=== PATIENT | female | born 2000 | race Caucasian/White ===

== ENCOUNTER 2021-10-30 17:37 | Inpatient (IN) | payer OTHER, SELFPAY ==
[2021-10-30 18:13] LABS: #Basophils 0.1 10x3/uL (0.0-0.2); #Monocytes 0.6 10x3/uL (0.0-1.1); %Basophils 0.5 % (0.0-2.0); %Lymphocytes 9.6 % (18.0-47.0); %Monocytes 5.8 % (0.0-10.0); %Neutrophils 83.9 % (40.0-75.0); Hemoglobin 15.1 g/dL (12.0-15.5); Mean Corpuscular HGB CONC 35.8 g/dL (32.0-36.0); Mean Corpuscular Volume 81.2 fl (81.6-98.3); Mean Platelet Volume 9.2 fl (7.4-10.4); Platelet Count 297 10x3/uL (150-450); White Blood Cell (WBC) Count 9.5 10x3/uL (3.5-10.5)
[2021-10-30 18:21] LABS: BHCG - Serum Negative (NEGATIVE); Pregs Control Background? CLEAR/WHITE (CLR/WHITE); Pregs Control Bar Appear? YES (CONTROL BAR)
[2021-10-30 18:30] LABS: ALT (SGPT) 11 U/L (8-55); AST (SGOT) 12 U/L (5-34); Albumin 4.4 g/dL (3.5-5.0); Alkaline Phosphatase 82 U/L (40-100); Anion Gap 21 mmol/L (10-20); BUN (Urea Nitrogen) 10 mg/dL (7.0-18.7); Bilirubin, Total 0.5 mg/dL (0.2-1.2); Calc. Creatinine Clearance 0 mL/min (70-130); Calcium 9.4 mg/dL (7.8-10.44); Carbon Dioxide 11 mmol/L (22-29); Chloride 107 mmol/L (98-107); Globulin 2.9 g/dL (2.4-3.5); Glucose 224 mg/dL (70-105); Potassium 3.8 mmol/L (3.5-5.1); Protein, Total 7.3 g/dL (6.0-8.3); Sodium 135 mmol/L (136-145)
[2021-10-30 18:45] LABS: Lipase Less than 4 U/L (8-78)
[2021-10-30 18:45] LABS: Actual Bicarbonate (HCO3v) 12 mEq/L (22-28); Base Excess -12.5 mEq/L (-2.0 to +3.0); Calcium, Ionized (venous) 1.24 mmol/L (1.16-1.32); Chloride (VBG) 102 mmol/L (98-106); Hemoglobin (Hb) 16.7 g/dL (11.7-15.5); Potassium (VBG) 3.74 mmol/L (3.70-5.30); Puncture Site Other Site; Sodium 134.5 mmol/L (133-146); pH (venous) 7.28 (7.32-7.43)
[2021-10-30] MEDS ORDERED: Acetaminophen 500 MG TAB ONE (18:46)
[2021-10-30] MEDS ORDERED: Zolpidem Tartrate 5 MG TAB PO PRN (19:54)
[2021-10-30] MEDS ORDERED: Guaifenesin DM 100-10/5 ML UDCUP PO PRN (19:54)
[2021-10-30] MEDS ORDERED: Electrolyte Replacement Protocol 1 EACH IVPB PRN (19:54)
[2021-10-30] MEDS ORDERED: Ondansetron PF 4 MG/2 ML Vial IVP PRN (19:54)
[2021-10-30] MEDS ORDERED: INSULIN REGULAR IN 0.9 % NACL 100 UNIT/100 ML BAG ONE (19:54)
[2021-10-30] MEDS ORDERED: Calcium Carbonate 500 MG ChewTAB PO PRN (19:54)
[2021-10-30] MEDS ORDERED: Senokot S 8.6-50 MG TAB PO PRN (19:54)
[2021-10-30] MEDS ORDERED: Acetaminophen 325 MG TAB PO PRN (19:54)
[2021-10-30 20:51] VITALS: BMI 22.8
[2021-10-30] MEDS: INSULIN REGULAR IN 0.9 % NACL 100 UNIT in Premix Bag 1 BAG IVPB SCH (21:00)
[2021-10-30] MEDS ORDERED: Potassium Chloride 20 MEQ TAB PO SCH (21:00)
[2021-10-30] MEDS ORDERED: predniSONE 20 MG TAB PO SCH (21:00)
[2021-10-30 21:05] LABS: Bilirubin Neg (Negative); Blood, Urine 25 (Negative); Clarity Clear (Clear); Glucose, Urine (Dipstick) >=1000 mg/dL (Negative); Ketone, Urine 150 mg/dL (Negative); Leukocyte 100 (Negative); Nitrite Positive (Negative); Protein, Urine (Dipstick) 15 mg/dl (Neg-Trace); Specific Gravity, Urine 1.015 (1.002-1.036); Urobilinogen Normal mg/dL (Less than 2)
[2021-10-30] MEDS: Lactated Ringer's 1,000 ML IV SCH (21:06)
[2021-10-30] MEDS: D5 1/2 NS w/40 mEq KCL 1,000 ML IV SCH (21:06)
[2021-10-30 21:14] LABS: RBC/HPF 0-3 HPF (0-3)
[2021-10-30 21:15] LABS: Bacteria/HPF 1+ HPF (None Seen); Yeast-Budding 1+ HPF (None Seen)
[2021-10-30 22:18] LABS: Anion Gap 20 mmol/L (10-20); BUN (Urea Nitrogen) 7 mg/dL (7.0-18.7); Calc. Creatinine Clearance 98 mL/min (70-130); Calcium 8.2 mg/dL (7.8-10.44); Carbon Dioxide 10 mmol/L (22-29); Chloride 109 mmol/L (98-107); Glucose 225 mg/dL (70-105); Magnesium 1.6 mg/dL (1.7-2.2); Phosphorus 2.4 mg/dL (2.3-4.7); Potassium 3.7 mmol/L (3.5-5.1); Sodium 135 mmol/L (136-145)
[2021-10-30 22:18] LABS: Actual Bicarbonate (HCO3v) 10 mEq/L (22-28); Base Excess -16.1 mEq/L (-2.0 to +3.0); Calcium, Ionized (venous) 1.16 mmol/L (1.16-1.32); Chloride (VBG) 108 mmol/L (98-106); Hemoglobin (Hb) 13.4 g/dL (11.7-15.5); Puncture Site Other Site; Sodium 134.6 mmol/L (133-146)
[2021-10-30] MEDS ORDERED: Fluconazole In NaCl,Iso-Osm 200 MG in Premix Bag 1 BAG IVPB SCH (22:30)
[2021-10-30] MEDS ORDERED: Magnesium 2 GM/50 ML(in water) 2 GM in Premix Bag 1 BAG IVPB SCH (22:30)
[2021-10-30 23:06] LABS: SARS-CoV-2 NAA Rapid Test Not Detected (NotDetected)
[2021-10-30] MEDS: cefTRIAXone\\ROCEPHIN 1 GM in Sodium Chloride 0.9% 100 ML IVPB SCH (23:14)
[2021-10-30] MEDS: Oxymetazoline HCl 0.05% ( 15 ML ) NASAL SCH (23:26)
[2021-10-31] MEDS ORDERED: Magnesium 2 GM/50 ML(in water) 2 GM in Premix Bag 1 BAG IVPB SCH ×2 (00:30→07:00)
[2021-10-31 02:27] LABS: Actual Bicarbonate (HCO3v) 15 mEq/L (22-28); Base Excess -10.6 mEq/L (-2.0 to +3.0); Chloride (VBG) 108 mmol/L (98-106); Hemoglobin (Hb) 13.3 g/dL (11.7-15.5); Potassium (VBG) 4.17 mmol/L (3.70-5.30); Puncture Site Other Site; RapidComm Collect By LAB.YY; Sodium 134.6 mmol/L (133-146); pH (venous) 7.27 (7.32-7.43)
[2021-10-31 02:32] LABS: Anion Gap 15 mmol/L (10-20); BUN (Urea Nitrogen) 5 mg/dL (7.0-18.7); Calc. Creatinine Clearance 110 mL/min (70-130); Calcium 8.4 mg/dL (7.8-10.44); Carbon Dioxide 14 mmol/L (22-29); Chloride 111 mmol/L (98-107); Glucose 144 mg/dL (70-105); Magnesium 2.1 mg/dL (1.7-2.2); Phosphorus 1.3 mg/dL (2.3-4.7); Potassium 4.2 mmol/L (3.5-5.1); Sodium 136 mmol/L (136-145)
[2021-10-31] MEDS ORDERED: Potassium Phosphate 30 MMOL, Admixture Fee 1 EACH in Sodium Chloride 0.9% 250 ML 250 ML IVPB SCH (04:00)
[2021-10-31] MEDS: Lactated Ringer's 1,000 ML IV SCH ×2 (04:54→08:19)
[2021-10-31] MEDS: D5 1/2 NS w/40 mEq KCL 1,000 ML IV SCH ×3 (04:54→17:14)
[2021-10-31 06:20] LABS: Actual Bicarbonate (HCO3v) 16 mEq/L (22-28); Calcium, Ionized (venous) 1.21 mmol/L (1.16-1.32); Chloride (VBG) 107 mmol/L (98-106); Hemoglobin (Hb) 14.3 g/dL (11.7-15.5); Potassium (VBG) 4.24 mmol/L (3.70-5.30); Puncture Site Other Site; RapidComm Collect By LAB; Sodium 133.8 mmol/L (133-146); pH (venous) 7.32 (7.32-7.43)
[2021-10-31 06:28] LABS: #Monocytes 0.1 10x3/uL (0.0-1.1); #Neutrophils 5.6 10x3/uL (1.5-8.4); %Basophils 0.3 % (0.0-2.0); %Lymphocytes 10.7 % (18.0-47.0); %Monocytes 1.6 % (0.0-10.0); %Neutrophils 87.1 % (40.0-75.0); Mean Corpuscular HGB CONC 34.5 g/dL (32.0-36.0); Mean Corpuscular Hemoglobin 28.6 pg (27.0-33.0); Mean Platelet Volume 9.4 fl (7.4-10.4); Platelet Count 284 10x3/uL (150-450); RBC Distribution Width 12.2 % (11.5-14.5); Red Blood Cell (RBC) Count 4.54 10x6/uL (3.90-5.03); White Blood Cell (WBC) Count 6.4 10x3/uL (3.5-10.5)
[2021-10-31 06:37] LABS: Anion Gap 16 mmol/L (10-20); BUN (Urea Nitrogen) 4 mg/dL (7.0-18.7); Calc. Creatinine Clearance 112 mL/min (70-130); Calcium 8.8 mg/dL (7.8-10.44); Carbon Dioxide 14 mmol/L (22-29); Chloride 110 mmol/L (98-107); Glucose 164 mg/dL (70-105); Magnesium 1.7 mg/dL (1.7-2.2); Phosphorus 1.9 mg/dL (2.3-4.7); Potassium 4.4 mmol/L (3.5-5.1); Sodium 136 mmol/L (136-145)
[2021-10-31] MEDS ORDERED: PHOS-NAK 1 PKT PACK PO SCH (08:00)
[2021-10-31] MEDS: PHOS-NAK 1 PKT PACK PO SCH ×2 (08:22→16:42)
[2021-10-31] MEDS: Oxymetazoline HCl 0.05% ( 15 ML ) NASAL SCH ×2 (08:22→20:58)
[2021-10-31] MEDS: Enoxaparin Sodium 40 MG/0.4 ML SYRINGE SC SCH (08:22)
[2021-10-31 11:04] LABS: Anion Gap 15 mmol/L (10-20); BUN (Urea Nitrogen) Less than 4 mg/dL (7.0-18.7); Calc. Creatinine Clearance 110 mL/min (70-130); Calcium 8.8 mg/dL (7.8-10.44); Carbon Dioxide 17 mmol/L (22-29); Chloride 106 mmol/L (98-107); Glucose 258 mg/dL (70-105); Magnesium 2.5 mg/dL (1.7-2.2); Potassium 4.2 mmol/L (3.5-5.1); Sodium 134 mmol/L (136-145)
[2021-10-31 12:07] LABS: Hemoglobin A1c 11.2 % (4.0-6.0)
[2021-10-31] MEDS: INSULIN REGULAR IN 0.9 % NACL 100 UNIT in Premix Bag 1 BAG IVPB SCH (13:39)
[2021-10-31 17:37] LABS: Anion Gap 14 mmol/L (10-20); BUN (Urea Nitrogen) 6 mg/dL (7.0-18.7); Calc. Creatinine Clearance 118 mL/min (70-130); Calcium 8.6 mg/dL (7.8-10.44); Carbon Dioxide 19 mmol/L (22-29); Chloride 107 mmol/L (98-107); Glucose 201 mg/dL (70-105); Potassium 4.1 mmol/L (3.5-5.1); Sodium 136 mmol/L (136-145)
[2021-10-31 20:30] LABS: Anion Gap 14 mmol/L (10-20); BUN (Urea Nitrogen) 5 mg/dL (7.0-18.7); Calc. Creatinine Clearance 110 mL/min (70-130); Calcium 8.9 mg/dL (7.8-10.44); Carbon Dioxide 21 mmol/L (22-29); Chloride 103 mmol/L (98-107); Glucose 275 mg/dL (70-105); Potassium 3.7 mmol/L (3.5-5.1); Sodium 134 mmol/L (136-145)
[2021-10-31] MEDS ORDERED: Dextrose 50% Abboject 50 ML SYRINGE SLOW IVP PRN (21:49)
[2021-10-31] MEDS ORDERED: Dextrose 5% in Water 1,000 ML IV PRN (21:49)
[2021-10-31] MEDS ORDERED: Potassium Chloride 20 MEQ TAB PO SCH (22:00)
[2021-10-31] MEDS: cefTRIAXone\\ROCEPHIN 1 GM in Sodium Chloride 0.9% 100 ML IVPB SCH (22:02)
[2021-10-31] MEDS: Lantus 1000 UNITS/10 ML VIAL SC SCH (22:02)
[2021-10-31] MEDS: Fluconazole 100 MG TAB PO SCH (22:03)
[2021-11-01 04:05] LABS: #Basophils 0.1 10x3/uL (0.0-0.2); #Eosinphils 0.1 10x3/uL (0.0-0.5); #Monocytes 0.6 10x3/uL (0.0-1.1); #Neutrophils 2.8 10x3/uL (1.5-8.4); %Basophils 0.8 % (0.0-2.0); %Eosinophils 0.8 % (0.0-6.0); %Lymphocytes 44.1 % (18.0-47.0); %Monocytes 9.8 % (0.0-10.0); %Neutrophils 44.3 % (40.0-75.0); Mean Corpuscular HGB CONC 35.4 g/dL (32.0-36.0); Mean Corpuscular Hemoglobin 28.8 pg (27.0-33.0); Mean Corpuscular Volume 81.2 fl (81.6-98.3); Mean Platelet Volume 9.2 fl (7.4-10.4); Platelet Count 275 10x3/uL (150-450); RBC Distribution Width 12.4 % (11.5-14.5); Red Blood Cell (RBC) Count 4.52 10x6/uL (3.90-5.03); White Blood Cell (WBC) Count 6.3 10x3/uL (3.5-10.5)
[2021-11-01 04:22] LABS: Anion Gap 15 mmol/L (10-20); BUN (Urea Nitrogen) 4 mg/dL (7.0-18.7); Calc. Creatinine Clearance 126 mL/min (70-130); Calcium 8.9 mg/dL (7.8-10.44); Carbon Dioxide 21 mmol/L (22-29); Chloride 106 mmol/L (98-107); Glucose 188 mg/dL (70-105); Magnesium 1.6 mg/dL (1.7-2.2); Phosphorus 3.3 mg/dL (2.3-4.7); Potassium 3.9 mmol/L (3.5-5.1); Sodium 138 mmol/L (136-145)
[2021-11-01] MEDS: HumaLOG 300 UNITS/3 ML VIAL SC PRN ×3 (05:19→16:26)
[2021-11-01] MEDS ORDERED: Potassium Chloride 20 MEQ TAB PO SCH (06:00)
[2021-11-01] MEDS ORDERED: Magnesium 2 GM/50 ML(in water) 2 GM in Premix Bag 1 BAG IVPB SCH (06:00)
[2021-11-01] MEDS: Oxymetazoline HCl 0.05% ( 15 ML ) NASAL SCH (08:25)
[2021-11-01] MEDS: PHOS-NAK 1 PKT PACK PO SCH ×2 (08:25→16:14)
[2021-11-01] MEDS: Enoxaparin Sodium 40 MG/0.4 ML SYRINGE SC SCH (08:25)
[2021-11-01] MEDS: Lantus 1000 UNITS/10 ML VIAL SC SCH (21:11)
[2021-11-01] MEDS: Fluconazole 100 MG TAB PO SCH (23:18)
[2021-11-02 04:33] LABS: Mean Corpuscular HGB CONC 34.8 g/dL (32.0-36.0); Mean Corpuscular Hemoglobin 28.5 pg (27.0-33.0); Mean Corpuscular Volume 81.7 fl (81.6-98.3); Mean Platelet Volume 9.1 fl (7.4-10.4); Platelet Count 275 10x3/uL (150-450); RBC Distribution Width 12.2 % (11.5-14.5); Red Blood Cell (RBC) Count 4.92 10x6/uL (3.90-5.03)
[2021-11-02 04:48] LABS: MDiff Complete? YES
[2021-11-02 04:53] LABS: Band 3 % (5-11); Eosinophils 1 % (0-10); Lymphocytes 55 % (28-48); Monocytes 7 % (0-4); Neutrophil 30 % (31-61); Platelet Morphology Comment Appears Adequate; RBC Morphology Normal; Reactive Lymphocytes 4 % (0-10)
[2021-11-02 04:56] LABS: Anion Gap 14 mmol/L (10-20); BUN (Urea Nitrogen) 10 mg/dL (7.0-18.7); Calc. Creatinine Clearance 124 mL/min (70-130); Calcium 9.5 mg/dL (7.8-10.44); Carbon Dioxide 25 mmol/L (22-29); Chloride 102 mmol/L (98-107); Glucose 249 mg/dL (70-105); Magnesium 1.9 mg/dL (1.7-2.2); Sodium 137 mmol/L (136-145)
[2021-11-02] MEDS ORDERED: Magnesium 2 GM/50 ML(in water) 2 GM in Premix Bag 1 BAG IVPB SCH (06:00)
[2021-11-02] MEDS: HumaLOG 300 UNITS/3 ML VIAL SC PRN ×2 (06:35→12:05)
[2021-11-02] MEDS ORDERED: Lantus 1000 UNITS/10 ML VIAL SC SCH (07:30)
[2021-11-02] MEDS: Enoxaparin Sodium 40 MG/0.4 ML SYRINGE SC SCH (08:41)
[2021-11-02] MEDS: PHOS-NAK 1 PKT PACK PO SCH (08:41)
[2021-11-02] MEDS ORDERED: Fluticasone Propionate Nasal Spray 16 gm Bottle NASAL SCH (09:00)
[2021-11-02 12:16] VITALS: BP 114/65; TEMP 97.6
== END 2021-11-02 13:01 | disposition home or self-care (01) | DRG 638 ==
LOC: CSHERS 17:37 → CSHIMCU 20:46 → CSHTELE 11-01 18:24
PROVIDERS: ADMIT Student in an Organized Health Care Education/Training Program; ATTEND Emergency Medicine
DX: E10.10 Type 1 diabetes mellitus with ketoacidosis without coma (principal); N39.0 Urinary tract infection, site not specified; N17.9 Acute kidney failure, unspecified; E86.0 Dehydration; Z20.822 Contact with and (suspected) exposure to COVID-19; J06.9 Acute upper respiratory infection, unspecified
CPT/HCPCS: 36415; 36416; 71045; 80048; 80053; 81001; 82010; 82805; 83036; 83605; 83690; 83735; 84100; 84703; 85025; 87040; 87086; 87804; 93005; J0696; J1450; J1650; J1815; J3475; J3480; J3490; J7050; J7512; U0002

== ENCOUNTER 2023-03-11 12:51 | Inpatient (IN) | payer OTHER ==
[2023-03-11] MEDS ORDERED: Ondansetron PF 4 MG/2 ML Vial ONE (13:42)
[2023-03-11] MEDS ORDERED: Ondansetron ODT 4 MG TAB ONE (13:44)
[2023-03-11 14:38] LABS: #Basophils 0.2 10x3/uL (0.0-0.2); #Monocytes 1.3 10x3/uL (0.0-1.1); #Neutrophils 20.9 10x3/uL (1.5-8.4); %Basophils 0.7 % (0.0-2.0); %Eosinophils 0.1 % (0.0-6.0); %Lymphocytes 6.6 % (18.0-47.0); %Monocytes 5.4 % (0.0-10.0); %Neutrophils 86.6 % (40.0-75.0); Hematocrit 46.9 % (34.9-44.5); Hemoglobin 15.3 g/dL (12.0-15.5); Mean Corpuscular HGB CONC 32.6 g/dL (32.0-36.0); Mean Corpuscular Hemoglobin 28.8 pg (27.0-33.0); Mean Corpuscular Volume 88.3 fl (81.6-98.3); Mean Platelet Volume 9.9 fl (7.4-10.4); Platelet Count 416 10x3/uL (150-450); Red Blood Cell (RBC) Count 5.31 10x6/uL (3.90-5.03); White Blood Cell (WBC) Count 24.2 10x3/uL (3.5-10.5)
[2023-03-11 14:58] LABS: Actual Bicarbonate (HCO3v) 5.2 mEq/L (22-28); Base Excess -23.2 mEq/L (-2 - +2); Calcium, Ionized (venous) 1.09 mmol/L (1.16-1.32); Chloride (VBG) 103 mmol/L (98-106); Hematocrit-VBG 48 % (36.0-47.0); Hemoglobin (Hb) 16.4 g/dL (11.7-15.5); Potassium (VBG) 5.01 mmol/L (3.70-5.30); Puncture Site Other Site; RapidComm Collect By CBN
[2023-03-11 15:01] LABS: Acetaminophen Less than 10 mcg/mL (10.0-30.0); Alcohol Less than 10.0 mg/dL (Less than 10); Salicylate Less than 8.0 mg/dL (15.0-30.0)
[2023-03-11 15:02] LABS: ALT (SGPT) 19 U/L (8-55); Albumin 4.7 g/dL (3.5-5.0); Alkaline Phosphatase 81 U/L (40-110); BUN (Urea Nitrogen) 15 mg/dL (7.0-18.7); Bilirubin, Total 0.6 mg/dL (0.2-1.2); Calc. Creatinine Clearance 0 mL/min (70-130); Calcium 9.4 mg/dL (7.8-10.44); Chloride 103 mmol/L (98-107); Estimated GFR 60; Globulin 3.3 g/dL (2.4-3.5); Potassium 5.4 mmol/L (3.5-5.1); Sodium 134 mmol/L (136-145)
[2023-03-11] MEDS ORDERED: Ondansetron PF 4 MG/2 ML Vial IVP PRN (15:11)
[2023-03-11] MEDS ORDERED: Acetaminophen 325 MG TAB PO PRN (15:11)
[2023-03-11] MEDS ORDERED: Bisacodyl 5 MG TAB PO PRN (15:11)
[2023-03-11] MEDS ORDERED: Senokot S 8.6-50 MG TAB PO PRN (15:11)
[2023-03-11] MEDS ORDERED: Bisacodyl 10 MG SUPP PR PRN (15:11)
[2023-03-11] MEDS ORDERED: Sodium Chloride 0.9% 1,000 ML IV PRN ×4 (15:13)
[2023-03-11] MEDS ORDERED: Dextrose 5 %-0.45 % NaCl 1,000 ML IV PRN (15:13)
[2023-03-11] MEDS ORDERED: Electrolyte Replacement Protocol 1 EACH IVPB PRN (15:13)
[2023-03-11] MEDS ORDERED: NS 0.9% w/ 20 MEQ KCL 1,000 ML IV PRN ×2 (15:13)
[2023-03-11 15:20] LABS: AST (SGOT) 23 U/L (5-34); Carbon Dioxide Less than 8 mmol/L (22-29); Glucose 510 mg/dL (70-105)
[2023-03-11 15:21] LABS: Magnesium 2.2 mg/dL (1.6-2.6); Phosphorus 4.8 mg/dL (2.3-4.7)
[2023-03-11] MEDS ORDERED: INSULIN REGULAR IN 0.9 % NACL 100 UNITS/100 ML BAG ONE (15:32)
[2023-03-11 16:00] LABS: Pregnancy Test - Urine (BHCG) Negative (Negative); Pregu Control Background? CLEAR/WHITE (CLR/WHITE); Pregu Control Bar Appear? YES (CONTROL BAR)
[2023-03-11 16:03] LABS: Bilirubin Neg (Negative); Blood, Urine 250 (Negative); Clarity Slightly Cloudy (Clear); Glucose, Urine (Dipstick) >=1000 mg/dL (Negative); Ketone, Urine 150 mg/dL (Negative); Leukocyte 25 (Negative); Nitrite Negative (Negative); Protein, Urine (Dipstick) 30 mg/dl (Neg-Trace); Urobilinogen Normal mg/dL (Less than 2)
[2023-03-11] MEDS ORDERED: Haloperidol Lactate 5 MG/ML VIAL ONE (16:05)
[2023-03-11 16:09] LABS: BHCG - Serum Negative (NEGATIVE); Pregs Control Background? CLEAR/WHITE (CLR/WHITE); Pregs Control Bar Appear? YES (CONTROL BAR)
[2023-03-11 16:09] LABS: Amphetamine Not Detected (NotDetected); Barbiturates Screen Not Detected (NotDetected); Benzodiazepine Screen Not Detected (NotDetected); Cocaine Metabolite Screen Not Detected (NotDetected); Methadone Not Detected (NotDetected); Methamphetamine Not Detected (NotDetected); Opiate Screen Not Detected (NotDetected); Oxycodone Screen Not Detected (NotDetected); Phencyclidine (PCP) Not Detected (NotDetected); THC/Cannabinoid Screen Detected (NotDetected); Tricyclic Screen Not Detected (NotDetected)
[2023-03-11 16:12] LABS: CAUTI Indications for Culture Alt mental st,lethar; RBC/HPF 21-50 HPF (0-3); Squamous Epithelial 0-3 HPF (0-3)
[2023-03-11 16:13] LABS: Bacteria/HPF None Seen HPF (None Seen)
[2023-03-11 16:14] LABS: Urine Culture Reflex No No
[2023-03-11 16:15] LABS: BUN (Urea Nitrogen) 15 mg/dL (7.0-18.7); Calc. Creatinine Clearance 0 mL/min (70-130); Calcium 9.1 mg/dL (7.8-10.44); Chloride 106 mmol/L (98-107); Estimated GFR 64; Potassium 5.5 mmol/L (3.5-5.1); Sodium 136 mmol/L (136-145)
[2023-03-11 16:22] LABS: Carbon Dioxide Less than 8 mmol/L (22-29); Glucose 511 mg/dL (70-105)
[2023-03-11] MEDS ORDERED: INSULIN REGULAR IN 0.9 % NACL 100 UNITS in Premix Bag 1 BAG IVPB SCH (17:00)
[2023-03-11 17:08] VITALS: BMI 24.3
[2023-03-11 19:41] LABS: BUN (Urea Nitrogen) 11 mg/dL (7.0-18.7); Calc. Creatinine Clearance 87 mL/min (70-130); Chloride 118 mmol/L (98-107); Estimated GFR 85; Glucose 170 mg/dL (70-105); Potassium 4.6 mmol/L (3.5-5.1); Sodium 141 mmol/L (136-145)
[2023-03-11 19:51] LABS: Carbon Dioxide Less than 8 mmol/L (22-29)
[2023-03-11] MEDS: Dextrose 50% Abboject 50 ML SYRINGE SLOW IVP PRN (20:09)
[2023-03-11] MEDS: D5 1/2 NS w/20 mEq KCL 1,000 ML IV PRN (20:09)
[2023-03-11 23:35] LABS: Anion Gap 13 mmol/L (10-20); BUN (Urea Nitrogen) 7 mg/dL (7.0-18.7); Calc. Creatinine Clearance 95 mL/min (70-130); Calcium 7.8 mg/dL (7.8-10.44); Carbon Dioxide 10 mmol/L (22-29); Chloride 117 mmol/L (98-107); Estimated GFR 95; Glucose 275 mg/dL (70-105); Potassium 4.2 mmol/L (3.5-5.1); Sodium 136 mmol/L (136-145)
[2023-03-12] MEDS: D5 1/2 NS w/20 mEq KCL 1,000 ML IV PRN ×2 (00:09→04:15)
[2023-03-12] MEDS: Dextrose 50% Abboject 50 ML SYRINGE SLOW IVP PRN ×2 (04:14→06:02)
[2023-03-12 04:15] LABS: #Neutrophils 14.4 10x3/uL (1.5-8.4); %Basophils 0.2 % (0.0-2.0); %Eosinophils 0.1 % (0.0-6.0); %Lymphocytes 13.7 % (18.0-47.0); %Monocytes 5.5 % (0.0-10.0); %Neutrophils 80.2 % (40.0-75.0); Hematocrit 35.8 % (34.9-44.5); Hemoglobin 12.5 g/dL (12.0-15.5); Mean Corpuscular HGB CONC 34.9 g/dL (32.0-36.0); Mean Corpuscular Hemoglobin 29.1 pg (27.0-33.0); Mean Corpuscular Volume 83.4 fl (81.6-98.3); Mean Platelet Volume 9.1 fl (7.4-10.4); Platelet Count 356 10x3/uL (150-450); RBC Distribution Width 12.3 % (11.5-14.5); Red Blood Cell (RBC) Count 4.29 10x6/uL (3.90-5.03); White Blood Cell (WBC) Count 17.9 10x3/uL (3.5-10.5)
[2023-03-12 05:03] LABS: ALT (SGPT) 11 U/L (8-55); AST (SGOT) 9 U/L (5-34); Albumin 3.5 g/dL (3.5-5.0); Alkaline Phosphatase 59 U/L (40-110); Anion Gap 12 mmol/L (10-20); BUN (Urea Nitrogen) 5 mg/dL (7.0-18.7); Bilirubin, Direct 0.3 mg/dL (0.1-0.3); Bilirubin, Total 0.6 mg/dL (0.2-1.2); Calc. Creatinine Clearance 99 mL/min (70-130); Calcium 8.1 mg/dL (7.8-10.44); Carbon Dioxide 11 mmol/L (22-29); Cardiac Risk 3.1 (Less than 4.5); Chloride 119 mmol/L (98-107); Cholesterol 120 mg/dl (< 200 Desired); Estimated GFR 99; Glucose 140 mg/dL (70-105); HDL Cholesterol 39 mg/dL (>60 Neg Risk); LDL Cholesterol, Calculated 70 mg/dL; Magnesium 1.6 mg/dL (1.6-2.6); Potassium 3.7 mmol/L (3.5-5.1); Protein, Total 5.4 g/dL (6.0-8.3); Sodium 138 mmol/L (136-145); Triglycerides 57 mg/dL (Less than 150)
[2023-03-12] MEDS ORDERED: Magnesium 2 GM/50 ML(in water) 2 GM in Premix Bag 1 BAG IVPB SCH (06:00)
[2023-03-12 07:53] VITALS: BP 109/64; TEMP 98.1
[2023-03-12] MEDS ORDERED: Dextrose 50% Abboject 50 ML SYRINGE SLOW IVP PRN (08:07)
[2023-03-12] MEDS ORDERED: Glucagon 1 MG/ML KIT IM PRN (08:07)
[2023-03-12] MEDS ORDERED: HumaLOG 300 UNITS/3 ML VIAL SC PRN ×2 (08:07)
[2023-03-12] MEDS ORDERED: Dextrose 5% in Water 1,000 ML IV PRN (08:07)
[2023-03-12] MEDS ORDERED: Lantus 1000 UNITS/10 ML VIAL SC SCH (09:00)
[2023-03-12 12:08] LABS: Hemoglobin A1c 9.8 % (4.0-6.0)
[2023-03-12 14:15] LABS: Anion Gap 13 mmol/L (10-20); BUN (Urea Nitrogen) 4 mg/dL (7.0-18.7); Calc. Creatinine Clearance 112 mL/min (70-130); Calcium 8.3 mg/dL (7.8-10.44); Carbon Dioxide 13 mmol/L (22-29); Chloride 112 mmol/L (98-107); Estimated GFR 114; Glucose 224 mg/dL (70-105); Potassium 4.1 mmol/L (3.5-5.1); Sodium 134 mmol/L (136-145)
[2023-03-12 14:31] LABS: Actual Bicarbonate (HCO3v) 14.2 mEq/L (22-28); Base Excess -8.3 mEq/L (-2 - +2); Calcium, Ionized (venous) 1.17 mmol/L (1.16-1.32); Chloride (VBG) 108 mmol/L (98-106); Hematocrit-VBG 40 % (36.0-47.0); Hemoglobin (Hb) 13.6 g/dL (11.7-15.5); Potassium (VBG) 4.21 mmol/L (3.70-5.30); Puncture Site Other Site; RapidComm Collect By CBN; pH (venous) 7.415 (7.32-7.43)
== END 2023-03-12 15:42 | disposition home or self-care (01) | DRG 638 ==
LOC: CSHERS 12:51 → SUATTDRO 12:51 → CSHIMCU 15:11
PROVIDERS: ADMIT Family Medicine; ATTEND Family Medicine
PROC: 4A133R1 Monitoring of Arterial Saturation, Peripheral, Percutaneous Approach (ICD-10-PCS; principal; 2023-03-11)
DX: E10.10 Type 1 diabetes mellitus with ketoacidosis without coma (principal); N17.9 Acute kidney failure, unspecified; F10.90 Alcohol use, unspecified, uncomplicated; N28.9 Disorder of kidney and ureter, unspecified; D72.829 Elevated white blood cell count, unspecified; R00.0 Tachycardia, unspecified; E87.5 Hyperkalemia; F12.90 Cannabis use, unspecified, uncomplicated; R31.9 Hematuria, unspecified; Z71.51 Drug abuse counseling and surveillance of drug abuser; Z79.4 Long term (current) use of insulin
CPT/HCPCS: 36415; 36416; 71045; 80048; 80053; 80061; 80076; 80306; 80307; 81001; 81025; 82010; 82805; 83036; 83735; 84100; 84443; 84703; 85025; 93005; J1630; J1815; J2405; J3475; J3480; J7042; J7050; J7999; Q0162